=== PATIENT | male | born 1960 | race Caucasian/White ===

== ENCOUNTER 2022-03-28 20:10 | Emergency (ER) | payer OTHER ==
[2022-03-28] MEDS ORDERED: Fluorescein Opthalmic Strip ONE (21:42)
[2022-03-28] MEDS ORDERED: Tetracaine 0.5% PF 4 ML BOT ONE (21:42)
== END 2022-03-28 22:40 | disposition home or self-care (01) ==
LOC: CSHERS 20:10
DX: T15.91XA Foreign body on external eye, part unspecified, right eye, initial encounter (principal); F17.220 Nicotine dependence, chewing tobacco, uncomplicated
CPT/HCPCS: 65220

== ENCOUNTER 2024-12-02 08:19 | Outpatient (CLI) | payer BC, OTHER | END 2024-12-02 08:20 | disposition home or self-care (01) | LOC: CSHSLEEP 08:19 | PROVIDERS: ATTEND Family Medicine | DX: G47.33 Obstructive sleep apnea (adult) (pediatric) (principal); R53.83 Other fatigue; R41.89 Other symptoms and signs involving cognitive functions and awareness; R06.83 Snoring | CPT/HCPCS: 95800 ==